=== PATIENT | male | born 1970 | race African-American/Black ===

== ENCOUNTER 2017-11-25 16:15 | Emergency (ER) | payer SELFPAY ==
[2017-11-25 16:21] VITALS: BP 131/73; BMI 21.7
[2017-11-25] MEDS ORDERED: TORADOL 60 MG VIAL IM ONE (17:02)
--- NOTE | 2017-11-25 17:04 | DR.EXTPAIN ---
HPI - Time seen Time seen: 18:00 - PCP Primary Care Physician: ROSA - HPI Comment HPI Comment: HE IS RUNNING FEVER. HANGING HAND WHICH CAUSE MORE SWELLING. SLING PLACE IN ED WHILE EVALUATION CONTINUE. NO TRAINAGE. - Complaint/Symptoms Chief Complaint Doctor Comments: PATIENT PRESENTS WITH SWELLING AND PAIN RT HAND AND FOREARM TIMES ONE DAY. BELIEVE SLEPT ON HIS HAND AND MAY BE BROKEN. Chief Complaint:: PT STATED HE IS HAVING VERY BAD RIGHT ARM PAIN. HE STATED HE THINKS HIS SLEPT ON HIS ARM WRONG LAST NIGHT - Nurses notes reviewed Nurses Notes Review: Yes - Source History Provided: Patient - Mode of arrival Mode of Arrival: Ambulatory - Timing Onset of Chief Complaint: 11/24/17 - Context History of: None - Associated signs and symptoms Associated Signs and Symptoms: Pain, Swelling, Bruising, Other (FEVER.) PMH - PMH Past Medical History: No Past Surgical History: No - Family History History of Family Medical Conditions: No - Social History Does patient currently use any type of tobacco product: Yes Have you used tobacco products in the last 12 months: Yes Type of Tobacco Use: Cigarettes How many years tobacco product used: 1 Does any household member use tobacco: Yes Alcohol Use: None Do you use any recreational Drugs:: Yes (THC) Lives With: Family Lives Where: Home - infectious screening In the last 2 months have you had wt loss of >10#?: NO Have you had fever, night sweats or hemotysis?: No Have you traveled outside the country in the last 6 months?: No Isolation: Standard ROS - Review of Systems Constitutional: Fever Eyes: No Symptoms Reported ENTM: No Symptoms Reported Respiratoy: No Symptoms Reported Cardiovascular: No Symptoms Reported Gastrointestinal/Abdominal: No Symptoms Reported Genitourinary: No Symptoms Reported Neurological: No Symptoms Reported Musculoskeletal: Joint Pain, Joint Swelling, Muscle Pain Integumentary: Change in Color, Other (SWELLING, PAIN AND TENDERNESS RT HAND AND FOREARM. HAND IS WARM. NO DRAINAGE.) Hematologic/Lymphatic: No Symptoms Reported Endocrine: No Symptoms Reported All Other Systems: Reviewed and Negative PE - Vital Signs Vitals: Temperature 100.7 F Pulse Rate 81 Respiratory Rate 16 Blood Pressure 131/73 O2 Sat by Pulse Oximetry 98 - General Limitations: No Limitations General Appearance: Alert - Head Head Exam: Normal Inspection - Eyes Eye exam: Normal Appearance - ENT ENT Exam: Normal External Ear Exam - Neck Neck Exam: Trachea Midline - Chest Chest Inspection: Symmetric Chest Wall Rise - Respiratory Respiratory Exam: Normal Lung Sounds Bilat Respiratory Exam: Bilateral Clear to Auscultation - Cardiovascular Cardiovascular Exam: Regular Rate, Normal Rhythm, Normal Heart Sounds - Abdominal Exam Abdominal Exam: Normal Bowel Sounds, Soft. negative: Tenderness - Extremities Extremities Exam: Tenderness (SWELLING AND TENDERNESS RT HAND AND FOREARM. ROM DECREASE.) - Neurological Neurological Exam: Alert, Oriented X3 - Psychiatric Psychiatric Exam: Normal Affect, Normal Mood - Skin Skin Exam: Erythema, Other (SWELLING TENDERNESS RT FOREARM AND HAND.) Description: Tenderness (RT HAND AND FOREARM.), Erythematous, Swelling MDM - Differential Diagnosis Differential Diagnosis: Contusion, Fracture, Sprain, Other (CELLULITIS RT HAND.) Course - Treatment Treatment: SEE ORDERS. IM TORADOL IN ED. PATIENT DO NOT WISH TO BEADMITTED TO THE HOSPITAL AND BE TREATED WITH IV ANTIBIOTICS AND PAIN CONTRL. HE SIGN OUT AMA. - Education/Counseling Education/Counseling: Patient, Family, Education Educated On: Diagnosis, Needs for Follow Up ROR - Labs Reviewed Laboratory Results Reviewed?: Yes Result Diagrams: 11/25/17 18:14 11/25/17 18:14 Laboratory: WBC 24.5 X10^3/uL (3.6-10.0) H 11/25/17 18:14 RBC 4.15 X10^6/uL (4.7-6.0) L 11/25/17 18:14 Hgb 13.4 g/dL (13.5-18.0) L 11/25/17 18:14 Hct 38.9 % (42.0-54.0) L 11/25/17 18:14 MCV 93.7 fL (80.0-100.0) 11/25/17 18:14 MCH 32.2 pg (27.0-34.0) 11/25/17 18:14 MCHC 34.4 g/dL (33.0-35.0) 11/25/17 18:14 RDW 13.2 % (11.6-16.5) 11/25/17 18:14 Plt Count 198 X10^3/uL (150.0-450.0) 11/25/17 18:14 Plt Count Comment Adequate (ADEQUATE) 11/25/17 18: MPV 7.5 fL (7.4-11.0) 11/25/17 18:14 Neut % (Auto) 92.3 % (42.0-75.0) H 11/25/17 18:14 Lymph % (Auto) 2.4 % (21.0-51.0) L 11/25/17 18:14 [place] % (Auto) 5.0 % (0.0-13.0) 11/25/17 18:14 Eos % (Auto) 0.0 % (0.9-2.9) L 11/25/17 18:14 Baso % (Auto) 0.3 % (0.2-1.0) 11/25/17 18:14 Neut # (Auto) 22.6 x10^3/uL (2.2-4.8) H 11/25/17 18:14 Lymph # (Auto) 0.6 X10^3/uL (1.3-2.9) L 11/25/17 18:14 [place] # (Auto) 1.2 x10^3/uL (0.3-0.8) H 11/25/17 18:14 Eos # (Auto) 0.0 x10^3/uL (0.0-0.2) 11/25/17 18:14 Baso # (Auto) 0.1 X10^3/uL (0.0-0.1) 11/25/17 18:14 Absolute Nucleated RBC 0.0 /100WBC 11/25/17 18:14 Total Counted 100 11/25/17 18:14 Neutrophils % (Manual) 83 % (39-76) H 11/25/17 18:14 Band Neutrophils % 3 % (0-10) 11/25/17 18:14 Lymphocytes % (Manual) 8 % (13-43) L 11/25/17 18:14 Monocytes % (Manual) 6 % (4-9) 11/25/17 18:14 Plt Morphology Comment Normal (NORMAL) 11/25/17 18:14 RBC Morphology Normal (NORMAL) 11/25/17 18:14 Sodium 136 mmol/L (136-145) 11/25/17 18:14 Corrected Sodium 137 mmol/L (136-145) 11/25/17 18:14 Potassium 3.7 mmol/L (3.5-5.1) 11/25/17 18:14 Chloride 100 mmol/L (98-107) 11/25/17 18:14 Carbon Dioxide 27.6 mmol/L (21-32) 11/25/17 18:14 BUN 11 mg/dL (7-18) 11/25/17 18:14 Creatinine 1.02 mg/dL (0.70-1.30) 11/25/17 18:14 Est GFR (MDRD) Af Amer > 60 (>60) 11/25/17 18:14 Est GFR (MDRD) Non-Af > 60 (>60) 11/25/17 18:14 Glucose 138 mg/dL (65-99) H 11/25/17 18:14 Lactic Acid 1.1 mmol/L (0.4-2.0) 11/25/17 18:14 Calcium 8.2 mg/dL (8.5-10.1) L 11/25/17 18:14 Corrected Calcium TNP 11/25/17 18:14 Total Bilirubin 0.60 mg/dL (0.2-1.0) 11/25/17 18:14 AST 24 Units/L (15-37) 11/25/17 18:14 ALT 26 Units/L (12-78) 11/25/17 18:14 Alkaline Phosphatase 59 Units/L (46-116) 11/25/17 18:14 C-Reactive Protein 65.90 mg/L (0-3.0) H 11/25/17 18:14 Total Protein 7.6 g/dL (6.4-8.2) 11/25/17 18:14 Albumin 3.8 g/dL (3.4-5.0) 11/25/17 18:14 Globulin 3.8 g/dL (2.5-4.5) 11/25/17 18:14 Albumin/Globulin Ratio 1.0 Ratio (1.1-2.1) L 11/25/17 18:14 - XRAY XRAY Interpreted by: Radiologist XRAY Findings: REPORT DISCUSS WITH PATIEN. - Diagnosis Discharge Problem: Cellulitis of right hand - Discharge Plan Disposition: AGAINST MEDICAL ADVICE Condition: Stable - Follow ups/Referrals Follow ups/Referrals: NFD,None [Primary Care Provider] - 3 days - Instructions
[2017-11-25] MEDS ORDERED: TORADOL 60 MG VIAL ONE (17:14)
--- NOTE | 2017-11-25 17:41 | RAD ---
HISTORY: Slept on it hand wrong Study: 3 views of the right hand. Comparison: None Findings: No acute fractures or dislocations. The carpal bones appear well aligned. Chronic posttraumatic defo rmity involving the medial distal radius. Joint spaces of the finger are maintained. No significant soft tissue abnormality. IMPRESSION: 1. No acute abnormalities of the right hand. 2. 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
[2017-11-25] MEDS ORDERED: NS 1000 ML 1,000 ML IV ONE (17:58)
[2017-11-25] MEDS ORDERED: NS 1000 ML 1,000 ML ONE (18:24)
[2017-11-25 18:40] LABS: ALANINE AMINOTRANSFERASE 26 Units/L (12-78); ALBUMIN 3.8 g/dL (3.4-5.0); ALKALINE PHOSPHATASE 59 Units/L (46-116); ASPARTATE AMINO TRANSFERASE 24 Units/L (15-37); BLOOD UREA NITROGEN 11 mg/dL (7-18); CALCIUM 8.2 mg/dL (8.5-10.1); CARBON DIOXIDE 27.6 mmol/L (21-32); CHLORIDE 100 mmol/L (98-107); COR NA(FOR HYPERGLY) 137 mmol/L (136-145); CREATININE 1.02 mg/dL (0.70-1.30); SODIUM 136 mmol/L (136-145); TOTAL PROTEIN 7.6 g/dL (6.4-8.2); eGFR BLACK RACES > 60 (>60); eGFR NON BLACK RACES > 60 (>60)
[2017-11-25 18:41] LABS: BASOPHILS # (AUTO) 0.1 X10^3/uL (0.0-0.1); BASOPHILS % (AUTO) 0.3 % (0.2-1.0); HEMATOCRIT 38.9 % (42.0-54.0); HEMOGLOBIN 13.4 g/dL (13.5-18.0); LYMPHOCYTES # (AUTO) 0.6 X10^3/uL (1.3-2.9); LYMPHOCYTES % (AUTO) 2.4 % (21.0-51.0); MEAN CORPUSCULAR HEMOGLOBIN 32.2 pg (27.0-34.0); MEAN CORPUSCULAR HGB CONC 34.4 g/dL (33.0-35.0); MEAN CORPUSCULAR VOLUME 93.7 fL (80.0-100.0); MEAN PLATELET VOLUME 7.5 fL (7.4-11.0); MONOCYTES # (AUTO) 1.2 x10^3/uL (0.3-0.8); NEUTROPHILS # (AUTO) 22.6 x10^3/uL (2.2-4.8); NEUTROPHILS % (AUTO) 92.3 % (42.0-75.0); PLATELET COUNT 198 X10^3/uL (150.0-450.0); RED BLOOD COUNT 4.15 X10^6/uL (4.7-6.0); RED CELL DISTRIBUTION WIDTH 13.2 % (11.6-16.5); WHITE BLOOD COUNT 24.5 X10^3/uL (3.6-10.0)
[2017-11-25 18:49] LABS: LACTIC ACID 1.1 mmol/L (0.4-2.0)
[2017-11-25 19:02] LABS: BAND NEUTROPHILS % 3 % (0-10); PLATELET MORPHOLOGY COMMENT NORMAL (NORMAL)
== END 2017-11-25 19:30 | disposition left against medical advice (07) ==
LOC: ER 16:24
DX: L03.113 Cellulitis of right upper limb (principal); B95.7 Other staphylococcus as the cause of diseases classified elsewhere
CPT/HCPCS: 36415; 73130; 80053; 83605; 85025; 86140; 87040; 87077; 87186; 96365; 96367; 96372; 99282; 99283; A4222; J1885

== ENCOUNTER 2017-11-27 15:25 | Inpatient (IN) | payer SELFPAY ==
[2017-11-27] MEDS ORDERED: VANCOMYCIN HCL 1 GM VIAL 1 GM in D5W 250 ML IV 250 ML IV ONE (15:50)
--- NOTE | 2017-11-27 15:56 | DR.GENAD ---
HPI - PCP Primary Care Physician: nfd - Complaint/Symptoms Chief Complaint Doctors Comments: Patient is complaining of severe pain and swelling right arm, wrist and hand for the past three days getting worst. Patient seen in the emergency room on 11/25/17 and told he had an infection in his hand and needed to stay in the hospital but states he just got out the hospital in [place] and had to go home and take a bath so he left the hospital. Patient is complaining of severe right arm, wrist and hand pain with problems moving his right wrist and hand due to the pain. He is wearing a sling and arm immobilizer with a wrist spint. He denies chest pain, SOB, cold, cough fever or chills. States his pain is 10 of 10. He smokes 1/2 pack cigarettes daily but denies alcohol use but smokes marijuania. He denies trauma to his right arm. Patient blood culture positive for coagulase positive staph at two days. Chief Complaint:: Patient was seen in ed on 11/25/2017 and was told he needed to stay in the hospital for an infection in his right arm. Patient declined and is now back with worsening arm borrero. Self Treatment fo Chief Complaint: Sling on right arm - Nurses notes reviewed Nurses Notes Review: Yes - Source History Provided: Patient - Mode of Arrival Mode of Arrival: Ambulatory - Timing Onset of Chief Complaint: 11/25/17 Came on: Gradually - Duration Duration: Constant How lon Duration: Days - Location Location: right arm and wrist pain - Severity Severity: Severe - Modifying Factors Worsens:: movement Improves:: nothing PMH - PMH Past Medical History: Yes Past Medical History: GERD Past Medical History Comment: pancreatitis Past Surgical History: No - Family History History of Family Medical Conditions: Yes Family Medical History: Coronary Artery Disease, Hypertension - Social History Does patient currently use any type of tobacco product: Yes Have you used tobacco products in the last 12 months: Yes Type of Tobacco Use: Cigarettes Does any household member use tobacco: No Alcohol Use: None Do you use any recreational Drugs:: Yes (thc) Lives With: Family Lives Where: Home - infectious screening In the last 2 months have you had wt loss of >10#?: NO Have you had fever, night sweats or hemotysis?: No Have you traveled outside the country in the last 6 months?: No Isolation: Standard ROS - Review of Systems Constitutional: No Symptoms Reported. negative: See HPI, Chills, Diaphoresis, Fever, Malaise, Weakness, Irritable, Fatigue, Loss of Appetite, Other Eyes: No Symptoms Reported ENTM: No Symptoms Reported. negative: See HPI, Ear Pain, Ear Discharge, Pulling on Ears, Hearing Loss, Nose Pain, Nose Discharge, Epistaxis, Nose Congestion, Mouth Pain, Mouth Swelling, Loose Teeth, Drooling, Throat Pain, Throat Swelling, Ear Foreign Body Respiratoy: No Symptoms Reported Cardiovascular: No Symptoms Reported. negative: See HPI, Chest Pain, Edema, Palpitations, Syncope, Cyanosis, Skin Mottling, Other Gastrointestinal/Abdominal: No Symptoms Reported. negative: See HPI, Abdominal Pain, Constipation, Diarrhea, Nausea, Vomiting, Food Intolerance, Other Genitourinary: No Symptoms Reported. negative: See HPI, Discharge, Dysuria, Frequency, Hematuria, Pain, Bleeding, Other Neurological: No Symptoms Reported Musculoskeletal: No Symptoms Reported, Right, Arm, Wrist, Hand (pain and swelling right wrist and forearm) Integumentary: No Symptoms Reported. negative: See HPI, Change in Color, Change in Hair/Nails, Dryness, Lesions, Lumps, Rash, Itching, Wound, Bruises, Juandice, Other Hematologic/Lymphatic: No Symptoms Reported Endocrine: No Symptoms Reported Psychiatric: No Symptoms Reported. negative: See HPI, Anxiety, Depression, Hallucinations, Excessive crying, Suicidal, Other PE - Vital Signs Vitals: Temperature 99.3 F Pulse Rate [Left Apical] 85 Pulse Rate 80 Respiratory Rate 18 Blood Pressure 122/58 O2 Sat by Pulse Oximetry 98 - General Limitations: No Limitations General Appearance: Alert, In Distress (moderate to severe) - Head Head Exam: Normal Inspection, Atraumatic, Normocephalic - Eyes Eye exam: Normal Appearance, PERRL, EOMI. negative: Scleral Icterus, Conjunctival Injection, Nystagmus, Miosis, Mydrasis, Periorbital Swelling, Periorbital Tenderness, Other - ENT ENT Exam: Normal Exam, Normal Oropharynx, Normal External Ear Exam, TM's Normal Bilaterally. negative: Mucous Membranes Moist, Mucous Membranes Dry, Other External Ear Exam: Normal External Inspection TM/Canal Exam: Bilateral Normal Nose Exam: Normal Nose Exam Mouth Exam: Normal Inspection. negative: Drooling, Trismus, Lip Swelling, Tongue Elevation, Tongue Swelling, Laceration, Other Throat Exam: Normal Inspection. negative: Tonsillar Erythema, Tonsillomegaly, Tonsillar Exudate, R Peritonsillar Mass, L Peritonsillar Mass, Muffled Voice, Other - Neck Neck Exam: Normal Inspection, Full ROM, Trachea Midline. negative: Tenderness, Meningismus, Lymphadenopathy, Thyromegaly, Other - Chest Chest Inspection: Normal Inspection, Symmetric Chest Wall Rise. negative: Tenderness, Rash, Abscess, Other - Respiratory Respiratory Exam: Normal Lung Sounds Bilat Respiratory Exam: Bilateral Clear to Auscultation - Cardiovascular Cardiovascular Exam: Regular Rate, Normal Rhythm, Normal Heart Sounds - Abdominal Exam Abdominal Exam: Normal Inspection, Normal Bowel Sounds, Soft. negative: Distention, Tenderness, Guarding, Rebound, Rigidity, Dimnished Bowel Sounds, Hyperactive Bowel Sounds, Hypoactive Bowel Sounds, Organomegaly, Trauma, Incision, Ascites, Mass, Bruit, Pulsatile Mass, Hernia, Other Abdominal Tenderness: negative: RUQ, RLQ, LUQ, LLQ, Epigastrium, Suprapubic, Diffuse, Mild, Moderate, Severe, Other - Extremities Extremities Exam: Normal Inspection, Full ROM, Tenderness (right wrist tender, warm; right forearm tender, swollen with pain in movement and palpation), Normal Capillary Refill, Joint Swelling (right wrist) - Back Back Exam: Normal Inspection, Full ROM - Neurologic Neurological Exam: Alert, Oriented X3, CN II-XII Intact, Normal Gait, Reflexes Normal - Psychiatric Psychiatric Exam: Normal Affect, Normal Mood - Skin Skin Exam: Warm, Dry, Intact, Normal Color, Erythema (right wrist) ROR - Labs Reviewed Laboratory Results Reviewed?: Yes (All labs and x-ray results reviewed and discussed with patient and spouse) Result Diagrams: 11/27/17 15:57 11/27/17 15:57 Laboratory: WBC 15.8 X10^3/uL (3.6-10.0) H D 11/27/17 15:57 RBC 3.81 X10^6/uL (4.7-6.0) L 11/27/17 15:57 Hgb 12.4 g/dL (13.5-18.0) L 11/27/17 15:57 Hct 35.5 % (42.0-54.0) L 11/27/17 15:57 MCV 93.1 fL (80.0-100.0) 11/27/17 15:57 MCH 32.4 pg (27.0-34.0) 11/27/17 15:57 MCHC 34.8 g/dL (33.0-35.0) 11/27/17 15:57 RDW 13.4 % (11.6-16.5) 11/27/17 15:57 Plt Count 171 X10^3/uL (150.0-450.0) 11/27/17 15:57 MPV 7.8 fL (7.4-11.0) 11/27/17 15:57 Neut % (Auto) 82.4 % (42.0-75.0) H 11/27/17 15:57 Lymph % (Auto) 7.2 % (21.0-51.0) L 11/27/17 15:57 [place] % (Auto) 8.5 % (0.0-13.0) 11/27/17 15:57 Eos % (Auto) 1.4 % (0.9-2.9) 11/27/17 15:57 Baso % (Auto) 0.5 % (0.2-1.0) 11/27/17 15:57 Neut # (Auto) 13.0 x10^3/uL (2.2-4.8) H 11/27/17 15:57 Lymph # (Auto) 1.1 X10^3/uL (1.3-2.9) L 11/27/17 15:57 [place] # (Auto) 1.3 x10^3/uL (0.3-0.8) H 11/27/17 15:57 Eos # (Auto) 0.2 x10^3/uL (0.0-0.2) 11/27/17 15:57 Baso # (Auto) 0.1 X10^3/uL (0.0-0.1) 11/27/17 15:57 Absolute Nucleated RBC 0.0 /100WBC 11/27/17 15:57 Sodium 134 mmol/L (136-145) L 11/27/17 15:57 Corrected Sodium TNP 11/27/17 15:57 Potassium 3.5 mmol/L (3.5-5.1) 11/27/17 15:57 Chloride 98 mmol/L (98-107) 11/27/17 15:57 Carbon Dioxide 30.7 mmol/L (21-32) 11/27/17 15:57 BUN 14 mg/dL (7-18) 11/27/17 15:57 Creatinine 0.99 mg/dL (0.70-1.30) 11/27/17 15:57 Est GFR (MDRD) Af Amer > 60 (>60) 11/27/17 15:57 Est GFR (MDRD) Non-Af > 60 (>60) 11/27/17 15:57 Glucose 100 mg/dL (65-99) H 11/27/17 15:57 Uric Acid 2.3 mg/dL (3.5-7.2) L 11/27/17 15:57 Calcium 7.8 mg/dL (8.5-10.1) L 11/27/17 15:57 Corrected Calcium 8.7 mg/dL (8.5-10.1) 11/27/17 15:57 Total Bilirubin 0.40 mg/dL (0.2-1.0) 11/27/17 15:57 AST 40 Units/L (15-37) H 11/27/17 15:57 ALT 42 Units/L (12-78) 11/27/17 15:57 Alkaline Phosphatase 63 Units/L (46-116) 11/27/17 15:57 Total Protein 6.6 g/dL (6.4-8.2) 11/27/17 15:57 Albumin 2.9 g/dL (3.4-5.0) L 11/27/17 15:57 Globulin 3.7 g/dL (2.5-4.5) 11/27/17 15:57 Albumin/Globulin Ratio 0.8 Ratio (1.1-2.1) L 11/27/17 15:57 - Diagnosis Discharge Problem: cellulitis of right hand and arm, Staphylococcal sepsis - Discharge Plan Disposition: ADMITTED INPATIENT Condition: Stable - Follow ups/Referrals Follow ups/Referrals: NFD,None [Primary Care Provider] - 3 days - Instructions
[2017-11-27] MEDS ORDERED: NS 1000 ML 1,000 ML IV SCH (16:00)
[2017-11-27 16:09] LABS: BASOPHILS # (AUTO) 0.1 X10^3/uL (0.0-0.1); BASOPHILS % (AUTO) 0.5 % (0.2-1.0); EOSINOPHILS # (AUTO) 0.2 x10^3/uL (0.0-0.2); EOSINOPHILS % (AUTO) 1.4 % (0.9-2.9); HEMATOCRIT 35.5 % (42.0-54.0); HEMOGLOBIN 12.4 g/dL (13.5-18.0); LYMPHOCYTES # (AUTO) 1.1 X10^3/uL (1.3-2.9); LYMPHOCYTES % (AUTO) 7.2 % (21.0-51.0); MEAN CORPUSCULAR HEMOGLOBIN 32.4 pg (27.0-34.0); MEAN CORPUSCULAR HGB CONC 34.8 g/dL (33.0-35.0); MEAN CORPUSCULAR VOLUME 93.1 fL (80.0-100.0); MEAN PLATELET VOLUME 7.8 fL (7.4-11.0); MONOCYTES # (AUTO) 1.3 x10^3/uL (0.3-0.8); MONOCYTES % (AUTO) 8.5 % (0.0-13.0); NEUTROPHILS % (AUTO) 82.4 % (42.0-75.0); PLATELET COUNT 171 X10^3/uL (150.0-450.0); RED BLOOD COUNT 3.81 X10^6/uL (4.7-6.0); RED CELL DISTRIBUTION WIDTH 13.4 % (11.6-16.5); WHITE BLOOD COUNT 15.8 X10^3/uL (3.6-10.0)
[2017-11-27] MEDS ORDERED: VANCOMYCIN 1 GM PREMIX (ADDVANTAGE) 250 ML IV ONE (16:15)
[2017-11-27 16:20] LABS: ALANINE AMINOTRANSFERASE 42 Units/L (12-78); ALBUMIN 2.9 g/dL (3.4-5.0); ALKALINE PHOSPHATASE 63 Units/L (46-116); ASPARTATE AMINO TRANSFERASE 40 Units/L (15-37); BLOOD UREA NITROGEN 14 mg/dL (7-18); CALCIUM 7.8 mg/dL (8.5-10.1); CARBON DIOXIDE 30.7 mmol/L (21-32); CHLORIDE 98 mmol/L (98-107); COR CA(FOR HYPOALB) 8.7 mg/dL (8.5-10.1); CREATININE 0.99 mg/dL (0.70-1.30); SODIUM 134 mmol/L (136-145); TOTAL PROTEIN 6.6 g/dL (6.4-8.2); URIC ACID 2.3 mg/dL (3.5-7.2); eGFR BLACK RACES > 60 (>60); eGFR NON BLACK RACES > 60 (>60)
--- NOTE | 2017-11-27 16:43 | RAD ---
HISTORY: Pneumonia Study: Two-view chest Comparison: None Findings: The trachea is midline. The cardiac silhouette is unremarkable. The lungs are clear without focal i nfiltrate or effusion. The bony thorax is unremarkable. IMPRESSION: 1. No acute cardiopulmonary disease. Reported By:
--- NOTE | 2017-11-27 16:43 | RAD ---
Examination: Right forearm History: Pain and swelling, no injury Findings: No evidence for recent injury, bone destruction or soft tissue calcification. Apparent cont our deformity of the radial styloid process may be related to remote injury. Impression: No acute findings right forearm. Reported By:
--- NOTE | 2017-11-27 16:47 | RAD ---
HISTORY: Pain and swelling right hand and wrist. No injury. Study: Right hand three views Comparison: November 25, 2017. Findings: There is chronic fracture deformity and osteophyte formation involving the distal right radius. No ac nez perce cortical disruption or dislocation is identified. There is diffuse soft tissue swelling involvin g the right hand. The carpal bones appear aligned without evidence for fracture. IMPRESSION: 1. Diffuse soft tissue swelling over the right hand, without evidence of acute osseous injury. 2. Sequelae of old right radius fracture. Reported By:
[2017-11-27] MEDS ORDERED: MORPHINE SULFATE INJ 2 MG INJ IVP PRN (18:31)
[2017-11-27 18:39] LABS: BILIRUBIN,URINE NEGATIVE (NEGATIVE); BLOOD/HEMOGLOBIN,URINE 3+ (NEGATIVE); GLUCOSE, URINE NEGATIVE (NEGATIVE); KETONES,URINE NEGATIVE (NEGATIVE); LEUKOCYTE ESTERASE ,URINE 1+ (NEGATIVE); NITRITES,URINE NEGATIVE (NEGATIVE); PROTEIN,URINE 2+ (NEGATIVE); UROBILINOGEN,URINE NORMAL (NORMAL)
[2017-11-27 18:50] LABS: AMORPHOUS SEDIMENT,UR TRACE /HPF (NEGATIVE); APPEARANCE,URINE CLEAR (CLEAR); BACTERIA,URINE NEGATIVE /HPF (NEGATIVE); COLOR,URINE YELLOW (YELLOW); SQUAMOUS EPITHELIAL CELL,UR RARE /HPF (NEGATIVE)
[2017-11-27] MEDS: D5 LR 1000 ML 1,000 ML IV SCH (19:44)
[2017-11-27] MEDS: NORCO 5/325 MG TAB PO PRN (19:45)
[2017-11-27] MEDS: VANCOMYCIN HCL 1 GM VIAL 1 GM in D5W 250 ML IV 250 ML IV SCH (20:29)
[2017-11-27] MEDS: ZOSYN VIAL 3.375 GM 3.375 GM in NS 100 ML IV + SPIKE MINIBAG* 100 ML IV SCH (21:24)
[2017-11-27 21:32] VITALS: BMI 21.5
[2017-11-27] MEDS: MOTRIN TAB 600 MG PO PRN (22:15)
[2017-11-28] MEDS: NORCO 5/325 MG TAB PO PRN ×4 (03:38→22:02)
[2017-11-28] MEDS: D5 LR 1000 ML 1,000 ML IV SCH ×3 (04:25→22:36)
[2017-11-28] MEDS: ZOSYN VIAL 3.375 GM 3.375 GM in NS 100 ML IV + SPIKE MINIBAG* 100 ML IV SCH ×3 (05:09→21:18)
[2017-11-28] MEDS: MOTRIN TAB 600 MG PO PRN (05:10)
[2017-11-28 05:13] LABS: BASOPHILS % (AUTO) 0.2 % (0.2-1.0); EOSINOPHILS # (AUTO) 0.2 x10^3/uL (0.0-0.2); EOSINOPHILS % (AUTO) 1.5 % (0.9-2.9); HEMATOCRIT 34.4 % (42.0-54.0); HEMOGLOBIN 11.8 g/dL (13.5-18.0); LYMPHOCYTES # (AUTO) 1.1 X10^3/uL (1.3-2.9); LYMPHOCYTES % (AUTO) 9.4 % (21.0-51.0); MEAN CORPUSCULAR HEMOGLOBIN 32.6 pg (27.0-34.0); MEAN CORPUSCULAR HGB CONC 34.4 g/dL (33.0-35.0); MEAN CORPUSCULAR VOLUME 94.7 fL (80.0-100.0); MEAN PLATELET VOLUME 7.5 fL (7.4-11.0); MONOCYTES # (AUTO) 1.2 x10^3/uL (0.3-0.8); MONOCYTES % (AUTO) 10.5 % (0.0-13.0); NEUTROPHILS # (AUTO) 9.1 x10^3/uL (2.2-4.8); NEUTROPHILS % (AUTO) 78.4 % (42.0-75.0); PLATELET COUNT 169 X10^3/uL (150.0-450.0); RED BLOOD COUNT 3.63 X10^6/uL (4.7-6.0); RED CELL DISTRIBUTION WIDTH 13.2 % (11.6-16.5); WHITE BLOOD COUNT 11.6 X10^3/uL (3.6-10.0)
[2017-11-28 05:26] LABS: ALANINE AMINOTRANSFERASE 53 Units/L (12-78); ALBUMIN 2.3 g/dL (3.4-5.0); ALKALINE PHOSPHATASE 73 Units/L (46-116); ASPARTATE AMINO TRANSFERASE 51 Units/L (15-37); BLOOD UREA NITROGEN 11 mg/dL (7-18); CALCIUM 7.1 mg/dL (8.5-10.1); CARBON DIOXIDE 30.4 mmol/L (21-32); CHLORIDE 101 mmol/L (98-107); COR CA(FOR HYPOALB) 8.5 mg/dL (8.5-10.1); COR NA(FOR HYPERGLY) 136 mmol/L (136-145); CREATININE 0.94 mg/dL (0.70-1.30); SODIUM 136 mmol/L (136-145); TOTAL PROTEIN 5.9 g/dL (6.4-8.2); eGFR BLACK RACES > 60 (>60); eGFR NON BLACK RACES > 60 (>60)
[2017-11-28] MEDS ORDERED: K-RIDER 10 MEQ/NS 100 ML 10 MEQ/100 ML BAG IV PRN (06:16)
[2017-11-28] MEDS ORDERED: K-LYTE EFFERVESCENT PO PRN (06:16)
[2017-11-28] MEDS ORDERED: POTASSIUM CHL 40 MEQ/NS 0.45% 500 ML IV PRN (06:16)
[2017-11-28] MEDS ORDERED: POTASSIUM CHL 60 MEQ/NS 0.45% 500 ML IV PRN (06:16)
[2017-11-28] MEDS ORDERED: POTASSIUM CHLORIDE LIQ 20 MEQ UDC PO PRN (06:16)
[2017-11-28] MEDS ORDERED: MAGNESIUM SULFATE 1 GM/100 mL PREMIX 1 GM/100 ML BAG IV PRN (06:16)
[2017-11-28] MEDS: LOVENOX INJ 40 MG SYR SC SCH (10:09)
[2017-11-28] MEDS: VANCOMYCIN HCL 1 GM VIAL 1 GM in D5W 250 ML IV 250 ML IV SCH ×2 (10:10→21:19)
[2017-11-28] MEDS: TORADOL 15 MG VIAL IVP PRN ×2 (12:24→20:16)
[2017-11-28] MEDS: PHENERGAN TAB 25 MG PO PRN (15:45)
[2017-11-28] MEDS ORDERED: DEXTROSE 5% 500 ML IV ONE (20:54)
[2017-11-29] MEDS: NORCO 5/325 MG TAB PO PRN ×4 (03:56→21:45)
[2017-11-29] MEDS: D5 LR 1000 ML 1,000 ML IV SCH ×3 (04:08→21:20)
[2017-11-29] MEDS: ZOSYN VIAL 3.375 GM 3.375 GM in NS 100 ML IV + SPIKE MINIBAG* 100 ML IV SCH ×3 (05:29→23:00)
[2017-11-29] MEDS: TORADOL 15 MG VIAL IVP PRN ×3 (07:11→23:51)
[2017-11-29 07:14] LABS: BASOPHILS % (AUTO) 0.2 % (0.2-1.0); EOSINOPHILS # (AUTO) 0.2 x10^3/uL (0.0-0.2); EOSINOPHILS % (AUTO) 1.6 % (0.9-2.9); HEMATOCRIT 32.6 % (42.0-54.0); HEMOGLOBIN 11.4 g/dL (13.5-18.0); LYMPHOCYTES # (AUTO) 1.3 X10^3/uL (1.3-2.9); LYMPHOCYTES % (AUTO) 11.8 % (21.0-51.0); MEAN CORPUSCULAR HEMOGLOBIN 32.4 pg (27.0-34.0); MEAN CORPUSCULAR HGB CONC 34.9 g/dL (33.0-35.0); MEAN CORPUSCULAR VOLUME 92.9 fL (80.0-100.0); MEAN PLATELET VOLUME 7.3 fL (7.4-11.0); MONOCYTES # (AUTO) 1.4 x10^3/uL (0.3-0.8); MONOCYTES % (AUTO) 12.8 % (0.0-13.0); NEUTROPHILS # (AUTO) 8.2 x10^3/uL (2.2-4.8); NEUTROPHILS % (AUTO) 73.6 % (42.0-75.0); PLATELET COUNT 191 X10^3/uL (150.0-450.0); RED BLOOD COUNT 3.51 X10^6/uL (4.7-6.0); RED CELL DISTRIBUTION WIDTH 13.4 % (11.6-16.5); WHITE BLOOD COUNT 11.1 X10^3/uL (3.6-10.0)
[2017-11-29 07:31] LABS: ALANINE AMINOTRANSFERASE 61 Units/L (12-78); ALBUMIN 2.2 g/dL (3.4-5.0); ALKALINE PHOSPHATASE 85 Units/L (46-116); ASPARTATE AMINO TRANSFERASE 44 Units/L (15-37); BLOOD UREA NITROGEN 10 mg/dL (7-18); CALCIUM 7.7 mg/dL (8.5-10.1); CARBON DIOXIDE 30.1 mmol/L (21-32); CHLORIDE 104 mmol/L (98-107); COR CA(FOR HYPOALB) 9.1 mg/dL (8.5-10.1); CREATININE 0.95 mg/dL (0.70-1.30); SODIUM 140 mmol/L (136-145); TOTAL PROTEIN 5.9 g/dL (6.4-8.2); eGFR BLACK RACES > 60 (>60); eGFR NON BLACK RACES > 60 (>60)
[2017-11-29] MEDS ORDERED: NS 250 ML IV 250 ML IV ONE (08:30)
--- NOTE | 2017-11-29 08:52 | DR.H&P ---
H&P - History & Physical for Day of: H&P Date: 11/27/17 - Chief Complaint Chief Complaint: R HAND PAIN, REDNESS AND SWELLING - Allergies Allergies/Adverse Reactions: Allergies Allergy/AdvReac Type Severity Reaction Status Date / Time No Known Drug Allergies Allergy Verified 11/27/17 15:30 - History of Present Illness History of Present Illness: PT IS 47 BM ER ADMISSION AFTER PRESENTING WITH CO INTRACTABLE RIGHT HAND, WRIST, FOREARM PAIN. PT CO REDNESS AND SWELLING. PT STATES ONSET WAS APPROX 1 WEEK AGO, PT WAS TREATED AT [facility] IN [place] FOR GERD AND HAD ONSET OF ORTHO SYMPTOMS POST D/C. PT STATES HE HAD US AT [place] NEGATIVE FOR BLOOD CLOT. PT WAS EVALUATION IN ER AND HAD +BC FROM 11/25. PT CO PMH OF HTN. PT ADMITTED FOR IV VANCOMYCIN, PAIN CONTROL, REPEAT BC'S. - Past Medical History Past Medical History: GERD - Past Surgical History Surgical History: No History - Family History Family Medical History: Coronary Artery Disease, Hypertension - Social History Does patient currently use any type of tobacco product: Yes Have you used tobacco products in the last 12 months: Yes Type of Tobacco Use: Cigarettes How many years tobacco product used: 1 Does any household member use tobacco: No Alcohol Use: None Drug Use: Marijuana - Medications Home Medications: NK [NK] 11/27/17 [History Confirmed 11/27/17] - Review of Systems Constitutional: No Symptoms Reported Eyes: No Symptoms Reported ENT: No Symptoms Reported Respiratory: No Symptoms Reported Cardiovascular: No Symptoms Reported Gastrointestinal: No Symptoms Reported Genitourinary: No Symptoms Reported Musculoskeletal: Arm Pain, Hand Pain Skin: Other (REDNESS AND SWELLING TO RIGHT UPPER EXTREMITY) Neurological: No Symptoms Reported - Physical Exam Vital Signs: Temperature 99.2 F Pulse Rate [Left Apical] 57 Pulse Rate 80 Respiratory Rate 16 Blood Pressure [Left Arm] 121/70 Blood Pressure 122/58 O2 Sat by Pulse Oximetry 97 Oriented: Normal Eyes: Normal Ear: Normal Nose: Normal Throat: Normal Respiratory: Clear Throughout Cardiovascular: Normal : Normal Auscultation: Bowel Sounds: Normal Palpation: Normal Tenderness: Normal Skin: Red, Tender, Hot Musculoskeletal: Right, Forearm, Wrist, Hand, Swelling, Tender Psychiatric: Anxiety Affect: Anxious Speech Pattern: Clear, Appropriate - Assessment/Plan (1) Staphylococcal sepsis Status: Acute Plan: ADMIT, IV ATBX, VANCOMYCIN. IV HYDRATION, XRAYS ON ADMISSION. PAIN CONTROL, ELEVATE RUE OBTAIN RAD REPORTS FROM [facility] IN [place] (2) Cellulitis of right hand Status: Acute (3) GERD (gastroesophageal reflux disease) Status: Acute
[2017-11-29] MEDS: VANCOMYCIN HCL 1 GM VIAL 1 GM in D5W 250 ML IV 250 ML IV SCH ×2 (09:01→22:59)
[2017-11-29] MEDS: LOVENOX INJ 40 MG SYR SC SCH (09:02)
[2017-11-29] MEDS: PHENERGAN TAB 25 MG PO PRN (21:17)
[2017-11-29 22:15] LABS: CREATININE 0.9 mg/dL (0.70-1.30); VANCOMYCIN,TROUGH 4.4 ug/mL (15-20)
[2017-11-30] MEDS: D5 LR 1000 ML 1,000 ML IV SCH ×2 (05:45→20:50)
[2017-11-30] MEDS: ZOSYN VIAL 3.375 GM 3.375 GM in NS 100 ML IV + SPIKE MINIBAG* 100 ML IV SCH ×3 (06:10→22:15)
[2017-11-30 06:56] LABS: BASOPHILS # (AUTO) 0.1 X10^3/uL (0.0-0.1); BASOPHILS % (AUTO) 0.5 % (0.2-1.0); EOSINOPHILS # (AUTO) 0.2 x10^3/uL (0.0-0.2); EOSINOPHILS % (AUTO) 1.8 % (0.9-2.9); HEMOGLOBIN 11.4 g/dL (13.5-18.0); LYMPHOCYTES # (AUTO) 2.6 X10^3/uL (1.3-2.9); LYMPHOCYTES % (AUTO) 22.7 % (21.0-51.0); MEAN CORPUSCULAR HEMOGLOBIN 32.2 pg (27.0-34.0); MEAN CORPUSCULAR HGB CONC 34.4 g/dL (33.0-35.0); MEAN CORPUSCULAR VOLUME 93.4 fL (80.0-100.0); MEAN PLATELET VOLUME 7.5 fL (7.4-11.0); MONOCYTES # (AUTO) 1.6 x10^3/uL (0.3-0.8); MONOCYTES % (AUTO) 14.1 % (0.0-13.0); NEUTROPHILS # (AUTO) 7.1 x10^3/uL (2.2-4.8); NEUTROPHILS % (AUTO) 60.9 % (42.0-75.0); PLATELET COUNT 202 X10^3/uL (150.0-450.0); RED BLOOD COUNT 3.54 X10^6/uL (4.7-6.0); RED CELL DISTRIBUTION WIDTH 13.4 % (11.6-16.5); WHITE BLOOD COUNT 11.6 X10^3/uL (3.6-10.0)
[2017-11-30] MEDS: TORADOL 15 MG VIAL IVP PRN ×3 (07:00→20:40)
[2017-11-30 07:16] LABS: ALANINE AMINOTRANSFERASE 50 Units/L (12-78); ALBUMIN 2.2 g/dL (3.4-5.0); ALKALINE PHOSPHATASE 85 Units/L (46-116); ASPARTATE AMINO TRANSFERASE 26 Units/L (15-37); BLOOD UREA NITROGEN 8 mg/dL (7-18); CALCIUM 7.4 mg/dL (8.5-10.1); CARBON DIOXIDE 29.8 mmol/L (21-32); CHLORIDE 103 mmol/L (98-107); COR CA(FOR HYPOALB) 8.8 mg/dL (8.5-10.1); CREATININE 0.92 mg/dL (0.70-1.30); SODIUM 140 mmol/L (136-145); TOTAL PROTEIN 6.1 g/dL (6.4-8.2); eGFR BLACK RACES > 60 (>60); eGFR NON BLACK RACES > 60 (>60)
[2017-11-30] MEDS: NORCO 5/325 MG TAB PO PRN ×4 (09:00→22:26)
[2017-11-30] MEDS: VANCOMYCIN HCL 1 GM VIAL 1 GM in D5W 250 ML IV 250 ML IV SCH ×2 (09:00→20:49)
[2017-11-30] MEDS: LOVENOX INJ 40 MG SYR SC SCH (09:00)
[2017-11-30] MEDS: ZANTAC PO SCH (11:52)
[2017-11-30] MEDS: NICOTINE PATCH TD SCH (17:45)
--- NOTE | 2017-11-30 18:53 | PCM.PROG ---
Progress Note - Progress Note for Day of Date: 11/29/17 - Subjective Subjective: RUE REDNESS PAIN AND SWELLING - Past Medical Family Social History Past Med/Fam/Surg Hx: No changes since H&P Allergies: Allergies No Known Drug Allergies Allergy (Verified 11/27/17 15:30) - Review of Systems ROS: No change since H&P - Vital Signs and I&O's Vital Signs: Temperature 98.9 F Pulse Rate [Left Apical] 52 Pulse Rate 80 Respiratory Rate 18 Blood Pressure [Left Arm] 129/65 Blood Pressure 122/58 O2 Sat by Pulse Oximetry 97 Intake and Output: Intake & Output 11/28/17 11/29/17 11/30/17 12/01/17 11:59 11:59 11:59 11:59 Intake Total 658 4152 3901 530 Balance 658 4152 3901 530 - Physical Exam Oriented: Normal Eyes: Normal Ear: Normal Nose: Normal Throat: Normal Respiratory: Normal Cardiovascular: Normal : Normal Auscultation: Bowel Sounds: Normal Tenderness: Normal Skin: Red, Tender, Hot Musculoskeletal: Right, Forearm, Wrist, Hand, Swelling, Tender Psychiatric: Anxiety Affect: Anxious Speech Pattern: Clear, Appropriate - Laboratory and Diagnostics Result Diagrams: 11/30/17 05:35 11/30/17 05:35 Labs: 11/27/17 15:57 Blood Blood Culture - Preliminary 11/27/17 16:43 Blood Blood Culture - Preliminary Laboratory WBC 11.6 X10^3/uL (3.6-10.0) H 11/30/17 05:35 RBC 3.54 X10^6/uL (4.7-6.0) L 11/30/17 05:35 Hgb 11.4 g/dL (13.5-18.0) L 11/30/17 05:35 Hct 33.0 % (42.0-54.0) L 11/30/17 05:35 MCV 93.4 fL (80.0-100.0) 11/30/17 05:35 MCH 32.2 pg (27.0-34.0) 11/30/17 05:35 MCHC 34.4 g/dL (33.0-35.0) 11/30/17 05:35 RDW 13.4 % (11.6-16.5) 11/30/17 05:35 Plt Count 202 X10^3/uL (150.0-450.0) 11/30/17 05:35 MPV 7.5 fL (7.4-11.0) 11/30/17 05:35 Neut % (Auto) 60.9 % (42.0-75.0) 11/30/17 05:35 Lymph % (Auto) 22.7 % (21.0-51.0) 11/30/17 05:35 [place] % (Auto) 14.1 % (0.0-13.0) H 11/30/17 05:35 Eos % (Auto) 1.8 % (0.9-2.9) 11/30/17 05:35 Baso % (Auto) 0.5 % (0.2-1.0) 11/30/17 05:35 Neut # (Auto) 7.1 x10^3/uL (2.2-4.8) H 11/30/17 05:35 Lymph # (Auto) 2.6 X10^3/uL (1.3-2.9) 11/30/17 05:35 [place] # (Auto) 1.6 x10^3/uL (0.3-0.8) H 11/30/17 05:35 Eos # (Auto) 0.2 x10^3/uL (0.0-0.2) 11/30/17 05:35 Baso # (Auto) 0.1 X10^3/uL (0.0-0.1) 11/30/17 05:35 Absolute Nucleated RBC 0.0 /100WBC 11/30/17 05:35 Sodium 140 mmol/L (136-145) 11/30/17 05:35 Corrected Sodium TNP 11/30/17 05:35 Potassium 3.7 mmol/L (3.5-5.1) 11/30/17 05:35 Chloride 103 mmol/L (98-107) 11/30/17 05:35 Carbon Dioxide 29.8 mmol/L (21-32) 11/30/17 05:35 BUN 8 mg/dL (7-18) 11/30/17 05:35 Creatinine 0.92 mg/dL (0.70-1.30) 11/30/17 05:35 Est GFR (MDRD) Af Amer > 60 (>60) 11/30/17 05:35 Est GFR (MDRD) Non-Af > 60 (>60) 11/30/17 05:35 Glucose 88 mg/dL (65-99) 11/30/17 05:35 Lactic Acid 0.7 mmol/L (0.4-2.0) 11/28/17 17:20 Uric Acid 2.3 mg/dL (3.5-7.2) L 11/27/17 15:57 Calcium 7.4 mg/dL (8.5-10.1) L 11/30/17 05:35 Corrected Calcium 8.8 mg/dL (8.5-10.1) 11/30/17 05:35 Magnesium 2.1 mg/dL (1.7-2.9) 11/28/17 04:55 Total Bilirubin 0.30 mg/dL (0.2-1.0) 11/30/17 05:35 AST 26 Units/L (15-37) 11/30/17 05:35 ALT 50 Units/L (12-78) 11/30/17 05:35 Alkaline Phosphatase 85 Units/L (46-116) 11/30/17 05:35 Total Protein 6.1 g/dL (6.4-8.2) L 11/30/17 05:35 Albumin 2.2 g/dL (3.4-5.0) L 11/30/17 05:35 Globulin 3.9 g/dL (2.5-4.5) 11/30/17 05:35 Albumin/Globulin Ratio 0.6 Ratio (1.1-2.1) L 11/30/17 05:35 Specimen Type Random urine 11/27/17 18: Urine Color Yellow (YELLOW) 11/27/17 18: Urine Appearance Clear (CLEAR) 11/27/17 18: Urine pH 6.0 (5.0 - 8.0) 11/27/17 18: Ur Specific [place] 1.005 (1.000-1.030) 11/27/17 18: Urine Protein 2+ (NEGATIVE) 11/27/17 18: Urine Glucose (UA) Negative (NEGATIVE) 11/27/17 18: Urine Ketones Negative (NEGATIVE) 11/27/17 18 Urine Occult Blood 3+ (NEGATIVE) 11/27/17 18 Urine Nitrite Negative (NEGATIVE) 11/27/17 18 Urine Bilirubin Negative (NEGATIVE) 11/27/17 18 Urine Urobilinogen Normal (NORMAL) 11/27/17 18 Ur Leukocyte Esterase 1+ (NEGATIVE) 11/27/17 18 Urine RBC 3-5 /HPF (NONE SEEN) 11/27/17 Urine WBC 0-2 /HPF (NONE SEEN) 11/27/17 18 Ur Squamous Epith Cells Rare /HPF (NEGATIVE) 11/27/17 18 Amorphous Sediment Trace /HPF (NEGATIVE) 11/27/17 18 Urine Bacteria Negative /HPF (NEGATIVE) 11/27/17 Ur Culture Indicated? No/not indicated 11/27/17 Vancomycin Trough 4.4 ug/mL (15-20) L 11/29/17 21:45 Urine Opiates Screen Positive (NEG=<300) 11/27/17 Urine Methadone Screen Negative (NEG=<300) 11/27/17 Ur Barbiturates Screen Negative (NEG=<200) 11/27/17 Ur Phencyclidine Scrn Negative (NEG=<25) 11/27/17 Ur Amphetamines Screen Negative (NEG=<1000) 11/27/17 U Benzodiazepines Scrn Negative (NEG=<200) 11/27/17 Urine Cocaine Screen Negative (NEG=<300) 11/27/17 U Marijuana (THC) Screen Positive (NEG=<50) A 11/27/17 - Plan (1) Staphylococcal sepsis Status: Acute Plan: IV ATBX, VANCOMYCIN. IV HYDRATION, XRAYS ON ADMISSION. PAIN CONTROL, ELEVATE RUE. REPEAT AM LABS (2) Cellulitis of right hand Status: Acute (3) GERD (gastroesophageal reflux disease) Status: Acute
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
[2017-11-30 21:43] LABS: RHEUMATOID FACTOR NEGATIVE (NEGATIVE)
[2017-12-01] MEDS: NORCO 5/325 MG TAB PO PRN ×4 (02:54→19:58)
[2017-12-01] MEDS: D5 LR 1000 ML 1,000 ML IV SCH ×4 (03:19→21:30)
[2017-12-01] MEDS: TORADOL 15 MG VIAL IVP PRN ×4 (04:12→23:07)
[2017-12-01] MEDS: ZOSYN VIAL 3.375 GM 3.375 GM in NS 100 ML IV + SPIKE MINIBAG* 100 ML IV SCH ×3 (05:15→22:00)
[2017-12-01 06:31] LABS: BASOPHILS # (AUTO) 0.1 X10^3/uL (0.0-0.1); BASOPHILS % (AUTO) 0.7 % (0.2-1.0); EOSINOPHILS # (AUTO) 0.2 x10^3/uL (0.0-0.2); EOSINOPHILS % (AUTO) 2.1 % (0.9-2.9); HEMATOCRIT 32.1 % (42.0-54.0); HEMOGLOBIN 11.2 g/dL (13.5-18.0); LYMPHOCYTES # (AUTO) 2.8 X10^3/uL (1.3-2.9); LYMPHOCYTES % (AUTO) 25.3 % (21.0-51.0); MEAN CORPUSCULAR HEMOGLOBIN 32.2 pg (27.0-34.0); MEAN CORPUSCULAR HGB CONC 34.8 g/dL (33.0-35.0); MEAN CORPUSCULAR VOLUME 92.5 fL (80.0-100.0); MEAN PLATELET VOLUME 7.8 fL (7.4-11.0); MONOCYTES # (AUTO) 1.5 x10^3/uL (0.3-0.8); MONOCYTES % (AUTO) 13.5 % (0.0-13.0); NEUTROPHILS # (AUTO) 6.3 x10^3/uL (2.2-4.8); NEUTROPHILS % (AUTO) 58.4 % (42.0-75.0); PLATELET COUNT 240 X10^3/uL (150.0-450.0); RED BLOOD COUNT 3.47 X10^6/uL (4.7-6.0); RED CELL DISTRIBUTION WIDTH 13.1 % (11.6-16.5); WHITE BLOOD COUNT 10.9 X10^3/uL (3.6-10.0)
[2017-12-01 06:53] LABS: ALANINE AMINOTRANSFERASE 49 Units/L (12-78); ALBUMIN 2.3 g/dL (3.4-5.0); ALKALINE PHOSPHATASE 82 Units/L (46-116); ASPARTATE AMINO TRANSFERASE 28 Units/L (15-37); BLOOD UREA NITROGEN 9 mg/dL (7-18); CALCIUM 7.4 mg/dL (8.5-10.1); CARBON DIOXIDE 28.8 mmol/L (21-32); CHLORIDE 102 mmol/L (98-107); COR CA(FOR HYPOALB) 8.8 mg/dL (8.5-10.1); CREATININE 0.97 mg/dL (0.70-1.30); SODIUM 139 mmol/L (136-145); TOTAL PROTEIN 6.3 g/dL (6.4-8.2); eGFR BLACK RACES > 60 (>60); eGFR NON BLACK RACES > 60 (>60)
[2017-12-01] MEDS: VANCOMYCIN HCL 1 GM VIAL 1 GM in D5W 250 ML IV 250 ML IV SCH ×2 (08:41→21:31)
[2017-12-01] MEDS: LOVENOX INJ 40 MG SYR SC SCH (08:44)
[2017-12-01] MEDS: ZANTAC PO SCH (08:45)
[2017-12-01] MEDS: NICOTINE PATCH TD SCH (08:45)
[2017-12-01 21:17] LABS: CREATININE 0.96 mg/dL (0.70-1.30); VANCOMYCIN,TROUGH 6.1 ug/mL (15-20)
[2017-12-02] MEDS: NORCO 5/325 MG TAB PO PRN ×3 (02:39→09:57)
[2017-12-02] MEDS: D5 LR 1000 ML 1,000 ML IV SCH (04:09)
[2017-12-02] MEDS: TORADOL 15 MG VIAL IVP PRN ×2 (05:40→11:52)
[2017-12-02] MEDS: ZOSYN VIAL 3.375 GM 3.375 GM in NS 100 ML IV + SPIKE MINIBAG* 100 ML IV SCH ×2 (05:40→14:14)
[2017-12-02 06:10] LABS: BASOPHILS # (AUTO) 0.1 X10^3/uL (0.0-0.1); BASOPHILS % (AUTO) 0.6 % (0.2-1.0); EOSINOPHILS # (AUTO) 0.4 x10^3/uL (0.0-0.2); EOSINOPHILS % (AUTO) 3.5 % (0.9-2.9); HEMATOCRIT 33.9 % (42.0-54.0); LYMPHOCYTES # (AUTO) 2.9 X10^3/uL (1.3-2.9); MEAN CORPUSCULAR HEMOGLOBIN 32.7 pg (27.0-34.0); MEAN CORPUSCULAR HGB CONC 35.3 g/dL (33.0-35.0); MEAN CORPUSCULAR VOLUME 92.7 fL (80.0-100.0); MEAN PLATELET VOLUME 7.4 fL (7.4-11.0); MONOCYTES # (AUTO) 1.1 x10^3/uL (0.3-0.8); MONOCYTES % (AUTO) 10.5 % (0.0-13.0); NEUTROPHILS % (AUTO) 57.4 % (42.0-75.0); PLATELET COUNT 293 X10^3/uL (150.0-450.0); RED BLOOD COUNT 3.66 X10^6/uL (4.7-6.0); RED CELL DISTRIBUTION WIDTH 13.1 % (11.6-16.5); WHITE BLOOD COUNT 10.4 X10^3/uL (3.6-10.0)
[2017-12-02 06:23] LABS: ALANINE AMINOTRANSFERASE 50 Units/L (12-78); ALBUMIN 2.5 g/dL (3.4-5.0); ALKALINE PHOSPHATASE 78 Units/L (46-116); ASPARTATE AMINO TRANSFERASE 29 Units/L (15-37); BLOOD UREA NITROGEN 10 mg/dL (7-18); CALCIUM 7.8 mg/dL (8.5-10.1); CARBON DIOXIDE 28.3 mmol/L (21-32); CHLORIDE 103 mmol/L (98-107); CREATININE 0.97 mg/dL (0.70-1.30); SODIUM 139 mmol/L (136-145); TOTAL PROTEIN 6.9 g/dL (6.4-8.2); eGFR BLACK RACES > 60 (>60); eGFR NON BLACK RACES > 60 (>60)
[2017-12-02] MEDS: ZANTAC PO SCH (09:46)
[2017-12-02] MEDS: NICOTINE PATCH TD SCH (09:58)
[2017-12-02] MEDS: VANCOMYCIN HCL 1 GM VIAL 1 GM in D5W 250 ML IV 250 ML IV SCH (09:59)
[2017-12-02] MEDS: LOVENOX INJ 40 MG SYR SC SCH (09:59)
[2017-12-02 12:01] VITALS: BP 138/68
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
[2017-12-02] MEDS ORDERED: VANCOMYCIN HCL 1 GM VIAL 1 GM in D5W 250 ML IV 250 ML IV SCH (14:00)
[2017-12-03 07:48] LABS: ANTI-NUCLEAR ANTIBODY TEST None Detected (None Detected)
== END 2017-12-02 17:05 | disposition home or self-care (01) | DRG 602 ==
LOC: ER 15:31 → MED/SURG 18:30 → OBSVTOIN 11-29 10:00
PROVIDERS: ADMIT Internal Medicine; ATTEND Internal Medicine
DX: L03.113 Cellulitis of right upper limb (principal); A41.1 Sepsis due to other specified staphylococcus; K21.9 Gastro-esophageal reflux disease without esophagitis; F12.90 Cannabis use, unspecified, uncomplicated; R79.82 Elevated C-reactive protein (CRP)
CPT/HCPCS: 36415; 71046; 73090; 73130; 80053; 80202; 80307; 81001; 82565; 83605; 83735; 84132; 84550; 85025; 85652; 86140; 86308; 86430; 87040; 96365; 96367; 96374; 99284; A4216; A4222; Q0169; G0378; G0434; J1650; J2543; J3370; J7120